=== PATIENT | female | born 1950 | race Caucasian/White ===

== ENCOUNTER 2016-08-24 08:24 | Emergency (ER) | payer BC ==
[2016-08-24 08:39] VITALS: BP 125/70
[2016-08-24] MEDS ORDERED: Fluorescein Sodium TOPICAL* 1 MG TEST ONE (08:39)
[2016-08-24] MEDS ORDERED: BSS OPTH.SOL* BTL ONE (08:40)
[2016-08-24] MEDS ORDERED: Tetracaine 0.5% OPTH.SOL 4 ML* 1 DROP BTL ONE (08:40)
--- NOTE | 2016-08-24 09:12 | UC ---
Eye Complaint HPI - HPI Summary HPI Summary: right eye irritation since yesterday. No known injury or FB. Does not wear contacts. Had a routine check up with Dr. Patel 2 days before this started. No drainage. - History of Current Complaint Chief Complaint: UCEye Stated Complaint: RIGHT EYE COMPLAINT Time Seen by Provider: 08/24/16 09:08 Hx Obtained From: Patient Onset/Duration: Sudden Onset, Lasting Days, Still Present Timing: Constant Severity Initially: Moderate Severity Currently: Moderate Pain Intensity: 0 Pain Scale Used: 0-10 Numeric Location of Injury: Conjunctiva Character: Foreign Body Sensation Aggravating Factor(s): Nothing Alleviating Factor(s): Nothing Associated Signs And Symptoms: Positive: Negative. Negative: Drainage (Clear), Drainage (Purulent), Vision Impairment Right, Fever, Swelling - Risk Factors Penetrating Injury Risk Factor: Negative Acute Glaucoma Risk Factors: Negative - Allergies/Home Medications Allergies/Adverse Reactions: Allergies Allergy/AdvReac Type Severity Reaction Status Date / Time No Known Allergies Allergy Verified 08/24/16 08:29 Home Medications: Home Medications Amantadine CAP* [Symmetrel CAP*] 100 mg PO TID 08/24/16 [History Confirmed 08/24] Aspirin EC Low Dose* [Ecotrin EC Low Dose*] 81 mg PO DAILY 08/24/16 [History Confirmed 08/24/16] Atorvastatin* [Lipitor*] 10 mg PO DAILY 08/24/16 [History Confirmed 08/24/16] Canagliflozin (NF) [Invokana (NF)] 100 mg PO DAILY 08/24/16 [History Confirmed 08/24/16] Cyclobenzaprine TAB* [Flexeril TAB*] 10 mg PO TID PRN 08/24/16 [History Confirmed 08/24/16] Hydrochlorothiazide TAB* [Hydrodiuril TAB*] 12.5 mg PO DAILY 08/24/16 [History Confirmed 08/24/16] Lisinopril TAB* [Prinivil TAB*] 20 mg PO BID 08/24/16 [History Confirmed ] Polyethylene Glycol-Propylene [Systane Ultra 0.4-0.3 %] 1 drop BOTH EYES BID [History Confirmed 08/24/16] SitaGLIPtin (NF) [Januvia (NF)] 100 mg PO DAILY 08/24/16 [History Confirmed ] Verapamil SR CAP* [Calan Sr CAP*] 180 mg PO DAILY 08/24/16 [History Confirmed ] PMH/Surg Hx/FS Hx/Imm Hx Endocrine History Of: Reports: Diabetes, Dyslipidemia Cardiovascular History Of: Reports: Hypertension - Surgical History Surgical History: Yes Surgery Procedure, Year, and Place: Bilateral Cataract Extractions, 2015, [place]; Bilateral Bunionectomy, ~1999, ; Hysterectomy, 1997, - Family History Known Family History: Positive: Other - neg for glaucoma - Social History Alcohol Use: None Substance Use Type: None Smoking Status (MU): Never Smoked Tobacco - Immunization History Most Recent Influenza Vaccination: March 2016 Most Recent Pneumonia Vaccination: March 2016 Review of Systems Constitutional: Negative Skin: Negative Eyes: Eye Redness ENT: Negative Respiratory: Negative Cardiovascular: Negative Gastrointestinal: Negative Genitourinary: Negative Motor: Negative Neurovascular: Negative Musculoskeletal: Negative Neurological: Negative Psychological: Negative All Other Systems Reviewed And Are Negative: Yes Physical Exam Triage Information Reviewed: Yes Appearance: Well-Appearing, Well-Nourished, Pain Distress Vital Signs: Initial Vital Signs Temp 98.2 F 08/24/16 08:27 Pulse 80 08/24/16 08:27 Resp 16 08/24/16 08:27 BP 125/70 08/24/16 08:27 Pulse Ox 99 08/24/16 08:27 Vital Signs Reviewed: Yes Eyes: Positive: Conjunctiva Inflamed ENT: Positive: Normal ENT inspection Neck: Positive: Supple Respiratory: Positive: No respiratory distress Cardiovascular: Positive: RRR, Pulses Normal, Brisk Capillary Refill Musculoskeletal: Positive: Strength Intact, ROM Intact Neurological: Positive: Alert, Muscle Tone Normal Psychological Exam: Normal Skin Exam: Normal Procedures - Eye Procedure Alcaine Drops Administered: Yes Eye FB Removal: no removal w/ cotton swab, no removal w/ needle, other - fluor strip, +corneal abrasion 6:00 position Eye Complaint Course/Dx - Differential Dx/Diagnosis Differential Diagnosis/HQI/PQRI: Conjunctivitis, Corneal Abrasion, Periorbital Cellulitis Provider Diagnoses: corneal abrasion right eye Discharge - Discharge Plan Condition: Stable Disposition: HOME Prescriptions: Tobramycin 0.3% OPHTH.THOMAS* 2 drop RIGHT EYE Q4H #1 btl Patient Education Materials: Corneal Abrasion (ED) Referrals: Jorge RENTERIA,Michelle [Medical Doctor] - Rangel RENTERIA,Mariana [Primary Care Provider] -
== END 2016-08-24 09:29 | disposition home or self-care (01) ==
LOC: UCCORT 08:24
DX: S05.01XA Injury of conjunctiva and corneal abrasion without foreign body, right eye, initial encounter (principal); I10 Essential (primary) hypertension; E11.9 Type 2 diabetes mellitus without complications; E78.5 Hyperlipidemia, unspecified; X58.XXXA Exposure to other specified factors, initial encounter; Y92.9 Unspecified place or not applicable; Z98.84 Bariatric surgery status
CPT/HCPCS: 99202; A9270-GY; G0463